=== PATIENT | female | born 1975 | race Caucasian/White ===

== ENCOUNTER → 2021-01-22 08:53 | Outpatient (CLI) | payer OTHER, SELFPAY ==
--- NOTE | ~2021-01-22 | MR_ITS ---
EXAMINATION: MR pituitary wo/w con DATE: 01/22/2021 09:58 INDICATION: Hyperprolactinemia. TECHNIQUE: Magnetic resonance imaging (MRI) of the brain and brainstem was performed without and with 15 mL MultiHance intravenous contrast. Whole-brain sequences included sagittal T1-weighted FSE, axia l diffusion-weighted FS EPI, axial T2*-weighted GRE, axial T2-weighted FLAIR Propeller, and axial T2- weighted Propeller. Small [id number]-zk-hffq sequences included sagittal and coronal T1-weighted FSE cente red at the pituitary. Postcontrast sequences included small [id number]-[id number]-yhkm coronal T1-weighted FSE in a time course and sagittal T1-weighted FSE and whole-brain axial T1-weighted FSE. Apparent diffusion coefficient (ADC) maps were created. COMPARISON: None. FINDINGS: The pituitary is normal in size with height of 5 mm and concave superior margin. There is a hypoenhancing 5 mm mass in the pituitary at the midline posteriorly. There is no acute ischemic infa rct or intracranial hemorrhage. The ventricles are normal in size. The paranasal sinuses are clear. T he orbits are normal. The mastoid air cells are normal. IMPRESSION: 1. 5 mm hypoenhancing pituitary mass, consistent with a microadenoma. Reviewed, dictated and finalized at location A.
[2021-01-22 09:19] LABS: Estimated Glomerular Filt Rate > 60
== END ==
PROVIDERS: Visit Provider Obstetrics & Gynecology
DX: E22.1 Hyperprolactinemia (principal); E23.7 Disorder of pituitary gland, unspecified
CPT/HCPCS: 70553; A9577